=== PATIENT | female | born 2000 | race Hispanic/Latino ===

== ENCOUNTER 2024-11-18 23:20 | Emergency (ER) | payer SELFPAY ==
[~2024-11-18] VITALS: Ht 165.1 cm; Wt 61.2 kg
--- NOTE | 2024-11-18 23:45 | ERN ---
ED Note History of Present Illness Stated Complaint: UNWITNESS FALL/ HEAD INJURY Chief Complaint: Mechanical Fall Time Seen by MD: 23:23 Dictation: 24-YEAR-OLD FEMALE HISTORY OF BIPOLAR PRESENTS BY EMS FROM [facility] TO GET EVALUATED FOR HEMATOMA TO FOREHEAD. PER EMS PATIENT HAD AN UNWITNESSED FALL, FACILITY STAFF WALKED IN AND SHE WAS ON THE FLOOR AND NOTED TO HAVE HEMATOMA TO FOREHEAD, UNKNOWN LOC. PATIENT WAS MEDICATED WITH HALDOL ATIVAN AND BENADRYL PRIOR TO ARRIVAL DUE TO A PSYCHOSIS EPISODE SHE HAD TODAY. Past Medical History Past Medical History: Other Additional Past Medical Hx: BIPOLAR, MAJOR DEPRESSIVE DISORDER Surgical History: Unknown Review of System Dictation Constitutional: Negative for fever,chills, and weight loss Eyes: Negative for injury, pain,redness, and discharge ENT: Negative for injury,pain or swelling Cardiovascular: Negative for chest pain, palpitations, and edema Respiratory: Negative for shortness of breath, cough, wheezing, and pleuritic chest pain Abdomen/GI: Negative for abdominal pain, nausea, vomiting, diarrhea, and constipation Back: Negative for injury and pain : Negative for injury, bleeding and discharge MS/Extremity: Negative for injury and deformity Skin: Negative for rash, and discoloration. POSITIVE FOR HEMATOMA TO FOREHEAD AND LEFT EYEBROW Neuro: Negative seizure. Psych: Positive for history of bipolar Allergy/Immunology: Negative for hives, rash, and allergies Initial Vital Sign VS Vital Signs Date Time Temp Pulse Resp B/P (MAP) Pulse Ox O2 Delivery O2 Flow Rate FiO2 11/18/24 23:22 78 20 114/66 98 Room Air 0 11/18/24 23:49 99.0 21 Physical Exam Dictation GENERAL: NAD, DROWSY HEAD/FACE: POSITIVE HEMATOMA TO FOREHEAD AND LEFT EYEBROW EYES: PERRL ENT: ORAL CAVITY CLEAR, TMS CLEAR, NO SIGNS OF INFECTION NECK: TRACHEA MIDLINE, SUPPLE, NO NUCHAL RIGIDITY CARDIOVASCULAR: RRR RESPIRATORY: CTAB, NO RESPIRATORY DISTRESS, NO RALES OR WHEEZES ABDOMEN: SOFT, NON-TENDER, NON-DISTENDED, NORMAL BOWEL SOUNDS, NO GUARDING OR REBOUND. SKIN: WARM, DRY, NORMAL TURGOR, NO RASH MS/EXTREMITY: PULSES EQUAL, NO CYANOSIS, NEUROVASCULAR INTACT, NEURO: GCS 15, PATIENT NOTED TO BE VERY SLEEPY. WAS GIVEN HALDOL ATIVAN AND BENADRYL PRIOR TO ARRIVAL PSYCH: AFFECT NORMAL Results (Laboratory/Radiology) Laboratory/Radiology CT Scan Comment: CT MAXILLOFACIAL: FINDINGS: No facial fractures. No osseous lesion. Mild left posterior ethmoidal sinusitis. The rest of the paranasal sinuses are clear without mucosal thickening or air-fluid levels. The paranasal sinuses outflow tracts, including the osteomeatal complexes, are patent bilaterally. Midline nasal septum. Unremarkable nasal cavities and nasopharynx. No acute osseous changes are present. Intact roof of the ethmoids, cribriform plate, and planum sphenoidale. Small left periorbital soft tissue swelling. The mastoid air cells are clear. The imaged portions of the intracranial substances and orbits are grossly unremarkable. IMPRESSION: No acute facial fractures. Small left periorbital soft tissue swelling. Mild left posterior ethmoidal sinusitis. EXAM: Non-contrast CT examination of the Brain. CLINICAL HISTORY: Head injury. TECHNIQUE: Thin collimated axial CT images of the brain were obtained, with sagittal and coronal reformatted images also submitted. A CT scan was done according to ALARA (As low as reasonably achievable). CONTRAST USED: None. COMPARISON: None provided. FINDINGS: No acute intracranial abnormality is present. No acute cortical infarction, hemorrhage, mass, or mass effect. No hydrocephalus or abnormal extra-axial fluid collections. The posterior fossa is unremarkable. The skull base and calvarium are intact. Small mid anterior frontal scalp hematoma. The included portions of the paranasal sinuses and mastoid air cells are clear. IMPRESSION: No acute intracranial abnormality is present. Small mid anterior frontal scalp hematoma. /[facility] Course ED Course Medical Decision Making MDM 24-YEAR-OLD FEMALE HISTORY OF BIPOLAR PRESENTS BY EMS FROM [facility] TO GET EVALUATED FOR HEMATOMA TO FOREHEAD. PER EMS PATIENT HAD AN UNWITNESSED FALL, FACILITY STAFF WALKED IN AND SHE WAS ON THE FLOOR AND NOTED TO HAVE HEMATOMA TO FOREHEAD, UNKNOWN LOC. PATIENT WAS MEDICATED WITH HALDOL ATIVAN AND BENADRYL PRIOR TO ARRIVAL DUE TO A PSYCHOSIS EPISODE SHE HAD TODAY. WHILE IN ER PATIENT NOTED TO BE VERY SLEEPY AND DROWSY MOST LIKELY DUE TO THE MEDICATIONS RECEIVED AT THE FACILITY. DUE TO LIMITED HISTORY AND LIMITED EXAM PATIENT WILL HAVE CT HEAD AND MAXILLOFACIAL ORDERED. A 14 POINTS ROS DONE, PERTINENT POSITIVE AND NEGATIVES DESCRIBED IN HPI; ALL OTHERS NEGATIVE. TIME WAS SPENT ON COUNSELING, REVIEWING MEDICAL RECORDS, REVIEWING THE ENTIRE VISIT DOCUMENTATION (INCLUDING ANY COMMENTS THAT MAY HAVE BEEN GIVEN BY THE PATIENT I.E. THE REVIEW OF SYSTEMS) AND COORDINATION OF CARE PATIENT'S CT SCANS REPORT BACK NEGATIVE CT MAXILLOFACIAL AND NEGATIVE HEAD CT. PATIENT WILL BE DISCHARGED BACK TO THE FACILITY. PATIENT VSS, NAD, STABLE FOR DISCHARGE. DX & DISP Disposition: Discharge Departure Impression: Primary Impression: Fall Additional Impressions: Traumatic hematoma of forehead, Facial contusion, Bipolar 1 disorder, Periorbital swelling Condition: Stable Additional Instructions: FOLLOW-UP WITH YOUR PCP IN 24-72 HOURS AND IN THE EVENT IF SYMPTOMS WORSEN OR AN EMERGENCY OVERNIGHT REPORT TO THE ED IMMEDIATELY Referrals: NONE (PCP) ARMANDO CID NP Nov 18, 2024 23:45
[2024-11-18 23:49] VITALS: TEMP 99
--- NOTE | 2024-11-19 02:11 | HMCIMG ---
EXAM: Non-contrast CT examination of the Brain. CLINICAL HISTORY: Head injury. TECHNIQUE: Thin collimated axial CT images of the brain were obtained, with sagittal and coronal reformatted images also submitted. A CT scan was done according to ALARA (As low as reasonably achievable). CONTRAST USED: None. COMPARISON: None provided. FINDINGS: No acute intracranial abnormality is present. No acute cortical infarction, hemorrhage, mass, or mass effect. No hydrocephalus or abnormal extra-axial fluid collections. The posterior fossa is unremarkable. The skull base and calvarium are intact. Small mid anterior frontal scalp hematoma. The included portions of the paranasal sinuses and mastoid air cells are clear. IMPRESSION: No acute intracranial abnormality is present. Small mid anterior frontal scalp hematoma. /[place]
--- NOTE | 2024-11-19 02:13 | HMCIMG ---
EXAM: CT facial bones without IV contrast. CLINICAL HISTORY: Fall. Hematoma to the forehead and left eye. TECHNIQUE: Thin collimated axial CT images of the facial bones were obtained, with sagittal and coronal reformatted images also submitted. CT scan done according to ALARA (As Low As Reasonably Achievable). CONTRAST: None. COMPARISON: None provided. FINDINGS: No facial fractures. No osseous lesion. Mild left posterior ethmoidal sinusitis. The rest of the paranasal sinuses are clear without mucosal thickening or air-fluid levels. The paranasal sinuses outflow tracts, including the osteomeatal complexes, are patent bilaterally. Midline nasal septum. Unremarkable nasal cavities and nasopharynx. No acute osseous changes are present. Intact roof of the ethmoids, cribriform plate, and planum sphenoidale. Small left periorbital soft tissue swelling. The mastoid air cells are clear. The imaged portions of the intracranial substances and orbits are grossly unremarkable. IMPRESSION: No acute facial fractures. Small left periorbital soft tissue swelling. Mild left posterior ethmoidal sinusitis. /[place]
[2024-11-19 02:40] VITALS: BP 99/62; PULSE 72; RESP 15; O2SAT 100
--- NOTE | 2024-11-19 02:41 | NUR ---
CHARGE NURSE OMARI GAVE REPORT TO [facility] BRITTANYMarques. PENDING ARRIVAL OF TRANSPORTATION FOR PT TO GO BACK TO [place].
== END 2024-11-19 02:51 ==
LOC: EDH 23:20
DX: S00.03XA Contusion of scalp, initial encounter (principal); F31.9 Bipolar disorder, unspecified; W18.39XA Other fall on same level, initial encounter; Y93.89 Activity, other specified; Y92.89 Other specified places as the place of occurrence of the external cause; Y99.8 Other external cause status
CPT/HCPCS: 36415; 70450; 70486; 84703; 99285